=== PATIENT | male | born 1990 | race American Indian/Alaskan Native ===

== ENCOUNTER 2018-02-05 16:12 | Emergency (ER) | payer SELFPAY ==
[2018-02-05 16:20] VITALS: BP 141/89
[2018-02-05] MEDS ORDERED: TORADOL IM ONE (18:29)
[2018-02-05] MEDS ORDERED: NORCO 5/325 PO ONE (18:29)
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
== END 2018-02-05 18:50 | disposition home or self-care (01) ==
LOC: ED 16:12
DX: S62.344A Nondisplaced fracture of base of fourth metacarpal bone, right hand, initial encounter for closed fracture (principal); S62.001A Unspecified fracture of navicular [scaphoid] bone of right wrist, initial encounter for closed fracture; F17.200 Nicotine dependence, unspecified, uncomplicated; F12.10 Cannabis abuse, uncomplicated; W25.XXXA Contact with sharp glass, initial encounter; Y93.89 Activity, other specified; Y92.89 Other specified places as the place of occurrence of the external cause; Y99.8 Other external cause status; Z90.89 Acquired absence of other organs
CPT/HCPCS: 29125; 96372; 99283; J1885